=== PATIENT | male | born 1955 | race Two or more races ===

== ENCOUNTER 2022-08-21 22:56 | Emergency (ER) | payer OTHER ==
[~2022-08-21] VITALS: Ht 162.6 cm; Wt 68.2 kg
--- NOTE | 2022-08-21 23:39 | NUR ---
CALLED [facility]. CASE NUMBER IS [id number].
[2022-08-22] MEDS ORDERED: ibuprofen 200mg tablet PO ONE (04:15)
[2022-08-22] MEDS ORDERED: TETanus/Pertussis (Acell)/Diphther VAC/PF (Tdap-Adult) 0.5ml syringe IMVAC ONE (04:15)
[2022-08-22 06:25] VITALS: BP 121/72
--- NOTE | 2022-08-22 06:33 | NUR ---
called [employer] since pt is croatian speaking only.Patient does not know his exact address but agreed he can be dropped off somewhere in [facility] [place] and will walk to his residence.Denies family or friends who can transport him.vital signs stable.
== END 2022-08-22 07:04 | disposition home or self-care (01) ==
LOC: ER 23:09
DX: S20.219A Contusion of unspecified front wall of thorax, initial encounter (principal); S80.12XA Contusion of left lower leg, initial encounter; S80.11XA Contusion of right lower leg, initial encounter; Y04.0XXA Assault by unarmed brawl or fight, initial encounter; Y93.89 Activity, other specified; Y92.89 Other specified places as the place of occurrence of the external cause; Y99.8 Other external cause status
CPT/HCPCS: 90471; 90715; 99284